=== PATIENT | female | born 1955 | race African-American/Black ===

== ENCOUNTER 2018-02-21 07:04 | Day surgery (SDC) | payer BC ==
[~2018-02-21] VITALS: Ht 170.2 cm; Wt 129.4 kg
[2018-02-21 07:33] VITALS: BP 139/63; PULSE 66; TEMP 97.4
[2018-02-21] MEDS ORDERED: NEURONTIN300 MG/CAP PO (07:38)
[2018-02-21] MEDS ORDERED: MULTIPLE VITAMI1 CAP PO (07:39)
[2018-02-21] MEDS ORDERED: HCTZ12.5TAB PO (07:39)
[2018-02-21] MEDS ORDERED: ULTRAM 50MG TAB50 MG PO (07:39)
[2018-02-21] MEDS ORDERED: VITAMIND3 5000 PO (07:40)
[2018-02-21] MEDS ORDERED: SINGULAIR 110 MG/TAB PO (07:40)
[2018-02-21] MEDS ORDERED: QUALAQUIN324 MG PO (07:41)
[2018-02-21] MEDS ORDERED: ASACOL HD800 MG PO (07:41)
[2018-02-21] MEDS ORDERED: PREVACID 30MG30 M1 PO (07:42)
[2018-02-21] MEDS ORDERED: VOLTAREN GEL 1%1 TU TP (07:43)
[2018-02-21] MEDS ORDERED: FLOVENT 110MCG7.9 GM IH (07:44)
[2018-02-21] MEDS ORDERED: FLONASEALLERGY NS (07:44)
[2018-02-21] MEDS ORDERED: DIPROLENE CR15GM TP (08:07)
[2018-02-21 09:18] VITALS: BP 137/64; PULSE 70; TEMP 97.6
[2018-02-21 09:35] VITALS: BP 122/64; PULSE 72
[2018-02-21 09:50] VITALS: BP 107/71; PULSE 79
== END 2018-02-21 10:15 | disposition home or self-care (01) ==
LOC: SDCO 07:04
DX: R10.11 Right upper quadrant pain (principal); K64.0 First degree hemorrhoids; K63.5 Polyp of colon; K31.7 Polyp of stomach and duodenum; Z87.19 Personal history of other diseases of the digestive system; Z86.010 Personal history of colon polyps; Z98.84 Bariatric surgery status; J45.909 Unspecified asthma, uncomplicated; E11.9 Type 2 diabetes mellitus without complications; K21.9 Gastro-esophageal reflux disease without esophagitis; I10 Essential (primary) hypertension; M48.02 Spinal stenosis, cervical region; M48.061 Spinal stenosis, lumbar region without neurogenic claudication; E66.01 Morbid (severe) obesity due to excess calories; Z79.84 Long term (current) use of oral hypoglycemic drugs
CPT/HCPCS: OP; J2250; J2405; J2704; J3010; J7030

== ENCOUNTER → 2018-03-16 | Outpatient (CLI) | payer BC ==
[~2018-03-16] MED LIST: ASACOL HD800 MG PO; DIPROLENE CR15GM TP; FLONASEALLERGY NS; FLOVENT 110MCG7.9 GM IH; HCTZ12.5TAB PO; MULTIPLE VITAMI1 CAP PO; NEURONTIN300 MG/CAP PO; PREVACID 30MG30 M1 PO; QUALAQUIN324 MG PO; SINGULAIR 110 MG/TAB PO; ULTRAM 50MG TAB50 MG PO; VITAMIND3 5000 PO; VOLTAREN GEL 1%1 TU TP
== END ==
LOC: COL.RAD 08:54
DX: K22.4 Dyskinesia of esophagus (principal); K21.9 Gastro-esophageal reflux disease without esophagitis; Z98.84 Bariatric surgery status

== ENCOUNTER 2020-07-17 16:00 | Outpatient (RCR) | payer BC | END 2020-07-22 11:01 | disposition home or self-care (01) | LOC: WSC 16:00 | DX: M54.5 Low back pain (principal) ==

== ENCOUNTER 2021-05-14 14:15 | Outpatient (RCR) | payer BC | END 2021-06-25 | disposition home or self-care (01) | LOC: WSPT | DX: M48.02 Spinal stenosis, cervical region (principal) ==

== ENCOUNTER 2022-01-23 16:24 | Emergency (ER) | payer BC ==
[~2022-01-23] VITALS: Ht 170.2 cm; Wt 130.5 kg
[2022-01-23 17:07] LABS: HEMATOCRIT 37.9 % (37.0-47.0); MEAN CELL VOLUME 96 fl (80.0-100.0); MEAN CORPUSCULAR HEMOGLOBIN 31 pg (27-31); MEAN CORPUSCULAR HGB CONC 32 g/dl (33.0-37.0); MEAN PLATELET VOLUME 11.8 fl (7.4-10.4); PLATELET COUNT 230 K/mm3 (130-400); RED BLOOD COUNT 3.94 M/mm3 (4.10-5.30); REDCELL DISTRIBUTION WIDTH-CV 13.9 % (11.5-14.5)
[2022-01-23 17:16] LABS: ANION GAP 6 mmol/L (7-16); BLOOD UREA NITROGEN 28 mg/dL (10-20); CALCIUM 9.4 mg/dL (8.4-10.2); CARBON DIOXIDE 25 mmol/L (23-31); CHLORIDE 111 mmol/L (98-107); CREATININE, serum 1.31 mg/dL (0.57-1.11); GLUCOSE 98 mg/dL (70-99); PHOSPHOROUS 4.7 mg/dL (2.3-4.7); POTASSIUM 4.6 mmol/L (3.5-4.5); SODIUM 142 mmol/L (136-145)
[2022-01-23 17:26] LABS: TROPONIN-I < 0.010 ng/mL (0.00-0.033)
[2022-01-23 18:03] VITALS: BP 118/57; PULSE 61; TEMP 98
== END 2022-01-23 18:30 | disposition home or self-care (01) ==
LOC: COL.ER 16:24
PROVIDERS: Emergency Medicine
DX: R55 Syncope and collapse (principal); R94.4 Abnormal results of kidney function studies

== ENCOUNTER 2022-05-25 08:46 | Day surgery (SDC) | payer BC, MEDICARE ==
[~2022-05-25] VITALS: Ht 165.1 cm; Wt 128.4 kg
[~2022-05-25 08:46] MED LIST changes: +VITAMIN D3400 I1; -VITAMIND3 5000 PO
[2022-05-25] MEDS ORDERED: ZYRTEC 10MG10 MG PO (10:10)
[2022-05-25] MEDS ORDERED: B12 (10:11)
[2022-05-25] MEDS ORDERED: B12 PO (10:11)
[2022-05-25] MEDS ORDERED: PEPCID 20MG TAB20 MG PO (10:11)
[2022-05-25] MEDS ORDERED: TYLENOL 500MG500 MG PO (10:12)
[2022-05-25] MEDS ORDERED: TUMERIC (10:13)
[2022-05-25] MEDS ORDERED: PRINIVIL10 MG PO (10:13)
[2022-05-25 10:20] VITALS: BP 106/51; PULSE 54; TEMP 97.1
[2022-05-25 11:15] VITALS: BP 101/52; PULSE 59; TEMP 97.6
--- NOTE | 2022-05-25 11:15 | NUR ---
PATIENT TO ROOM 3 VIA CART. ASSIST X 2 TO CHAIR. VITAL SIGNS WNL. AT BEDSIDE. PATIENT REQUESTS A BLUEBERRY MUFFIN AND GRAPE JUICE. WILL CONTINUE TO MONITOR.
[2022-05-25 11:30] VITALS: BP 92/49; PULSE 62
--- NOTE | 2022-05-25 11:30 | NUR ---
PATIENT IS ALERT AND ORIENTED. TOLERATED GRAPE JUICE AND MUFFIN WELL. IV REMOVED AT 1135. VITAL SIGNS WNL. WILL CONTINUE TO MONITOR.
[2022-05-25 11:45] VITALS: BP 94/72; PULSE 61
--- NOTE | 2022-05-25 11:45 | NUR ---
PATIENT IS READY FOR DISCHARGE. VITAL SIGNS WNL. DISCHARGE INSTRUCTIONS REVIEWED WITH PATIENT AND HER . WILL TAKE OUTSIDE WHEN SHE IS DRESSED.
== END 2022-05-25 11:51 | disposition home or self-care (01) ==
LOC: SDCO 08:46
DX: K62.1 Rectal polyp (principal); K64.0 First degree hemorrhoids
CPT/HCPCS: J2704; J7120